=== PATIENT | male | born 1970 | race American Indian/Alaskan Native ===

== ENCOUNTER 2019-03-18 19:55 | Emergency (ER) | payer OTHER ==
[2019-03-18 20:07] VITALS: BP 128/87; TEMP 98.5; O2SAT 99
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
[2019-03-18 20:50] LABS: BASO # 0.1 K/uL (0.0-0.2); BASO % 0.7 % (0.0-2.0); EOS # 0.7 K/uL (0.0-0.7); EOS % 7.4 % (0.0-4.0); HEMOGLOBIN 14.3 g/dL (12.0-18.0); LYMPH # 3.2 K/uL (1.0-4.3); LYMPH % 32.3 % (20.0-40.0); MEAN CELL VOLUME 88.1 fl (80.0-94.0); MEAN CORPUSCULAR HEMOGLOBIN 28.2 pg (27.0-31.0); MEAN PLATELET VOLUME 10.1 fl (7.2-11.7); MONO # 0.8 K/uL (0.0-0.8); MONO % 7.9 % (0.0-10.0); NEUT # 5.1 K/uL (1.8-7.0); NEUT % 51.7 % (50.0-75.0); NRBC % 0.1 % (0.0-0.0); RBC 5.09 Mil/uL (4.40-5.90); RED CELL DISTRIBUTION WIDTH 14.9 % (11.5-14.5)
[2019-03-18 20:57] LABS: ALB/GLOB RATIO 1.3 (1.0-2.1); ALBUMIN 4.2 g/dL (3.5-5.0); ALT/SGPT 33 U/L (21-72); AST/SGOT 31 U/L (17-59); BLOOD UREA NITROGEN 17 mg/dl (9-20); CALCIUM 10.1 mg/dL (8.4-10.2); GFR NON-AFRICAN AMERICAN > 60
[2019-03-18 21:10] LABS: B-TYPE NATRIURETIC PEPTIDE 38.1 pg/ml (0-450)
[2019-03-18 21:15] LABS: PROTHROMBIN TIME 11.9 Seconds (9.8-13.1)
[2019-03-18 21:17] LABS: PARTIAL THROMBOPLASTIN TIME 37.4 Seconds (25.6-37.1)
[2019-03-18 21:26] LABS: D DIMER < 200 ng/mlDDU (0-230)
[2019-03-18] MEDS ORDERED: Iodixanol 320 MG/ML 100 ML BOTTLE IV ONE (22:25)
[2019-03-18] MEDS ORDERED: Sodium Chloride 0.9% 50 ML IV ONE (22:26)
[2019-03-19 00:06] VITALS: PULSE 85; RESP 16
--- NOTE | 2019-03-19 07:54 | RAD ---
Date of service: 03/18/2019 HISTORY: Left sided chest pain COMPARISON: No prior. TECHNIQUE: Chest PA and lateral views FINDINGS: LUNGS: No active pulmonary disease. PLEURA: No significant pleural effusion identified. No pneumothorax apparent. CARDIOVASCULAR: No aortic atherosclerotic calcification present. Normal cardiac size. No pulmonary vascular congestion. OSSEOUS STRUCTURES: No significant abnormalities. VISUALIZED UPPER ABDOMEN: Normal. OTHER FINDINGS: None. IMPRESSION: No active disease. Comments: No preliminary ER impression at this time.
--- NOTE | 2019-03-19 08:58 | CARD ---
APPROVED REPORT Date of service: 03/18/2019 EKG Measurement Heart [id number] <Conclusion> Sinus bradycardia with 1st degree AV block Otherwise normal ECG
--- NOTE | 2019-03-19 09:00 | CARD ---
APPROVED REPORT Date of service: 03/18/2019 EKG Measurement Heart [id number] <Conclusion> Normal sinus rhythm Normal ECG
--- NOTE | 2019-03-19 10:34 | CT ---
PROCEDURE: CT Angiography Chest, Abdomen and Pelvis with and without intravenous contrast HISTORY: chest pain radiating to back COMPARISON: None. TECHNIQUE: Contiguous axial images of the chest, abdomen and pelvis were obtained in the phase of aortic enhancement. A noncontrast enhanced CT of the chest was also obtained to evaluate for possible intramural thrombus. Coronal and sagittal reformats were generated. IV dose administered: 95 cc of Visipaque Radiation dose: Total exam DLP = 1148.35 mGy-cm. This CT exam was performed using one or more of the following dose reduction techniques: Automated exposure control, adjustment of the mA and/or kV according to patient size, and/or use of iterative reconstruction technique. FINDINGS: CT ANGIOGRAPHY OF THE CHEST WITH & WITHOUT CONTRAST: AORTA (CHEST AND ABDOMEN): The thoracic and abdominal aorta are unremarkable, without aneurysm, dissection or rupture. No intramural thrombus identified in the thoracic aorta on the non-contrast ct of the chest. The celiac axis, superior mesenteric artery, inferior mesenteric artery and the renal arteries are widely patent. The pelvic arteries are unremarkable. No evidence of pulmonary embolus LUNGS: Clear. No nodule, mass or consolidation. MEDIASTINUM: Unremarkable. Normal caliber aorta and pulmonary arterial trunk. No aortic dissection. Normal size heart. LYMPH NODES: Unremarkable. PLEURA: Unremarkable. No pneumothorax. No pleural fluid. BONES: Unremarkable. OTHER FINDINGS: None. CT ANGIOGRAPHY OF THE ABDOMEN AND PELVIS WITH CONTRAST: LIVER: Unremarkable. No gross lesion or ductal dilatation. GALLBLADDER AND BILE DUCTS: Small gallstones PANCREAS: Unremarkable. No gross lesion or ductal dilatation. SPLEEN: Unremarkable. ADRENALS: Unremarkable. No mass. KIDNEYS AND URETERS: Unremarkable. No hydronephrosis. No solid mass. VASCULATURE: Unremarkable. No aortic aneurysm. No aortic atherosclerotic calcification or mural plaque present. STOMACH AND BOWEL: Unremarkable. No obstruction. No gross mural thickening. APPENDIX: Normal appendix. PERITONEUM: Unremarkable. No free fluid. No free air. LYMPH NODES: Unremarkable. No enlarged lymph nodes. BLADDER: Unremarkable. REPRODUCTIVE: Unremarkable. BONES: No acute fracture. OTHER FINDINGS: The report concurs with the preliminary [facility] report IMPRESSION: No evidence of aortic dissection or aneurysm. No evidence of pulmonary embolus.
== END 2019-03-19 00:06 | disposition home or self-care (01) ==
LOC: H.ER 19:55
DX: R07.9 Chest pain, unspecified (principal); M54.10 Radiculopathy, site unspecified
CPT/HCPCS: 71046; 71275; 74175; 80053; 83735; 83880; 84100; 84443; 84484; 85025; 85378; 85610; 85730; 93005; 99284; Q9967

== ENCOUNTER 2019-03-30 19:49 | Emergency (ER) | payer OTHER ==
[2019-03-30 19:59] VITALS: O2SAT 98
--- NOTE | 2019-03-30 21:00 | ED PDOC ---
Upper Extremity Pain/Injury Time Seen by Provider: 03/30/19 19:59 Chief Complaint (Nursing): Upper Extremity Problem/Injury Chief Complaint (Provider): Upper Extremity Problem/Injury History Per: Patient History/Exam Limitations: no limitations Onset/Duration Of Symptoms: Days (today) Current Symptoms Are (Timing): Still Present Quality: "Pain" Additional Complaint(s): 48 year old male with no significant past medical history presents to the ED with left shoulder pain onset 8 am. Patient felt shoulder come out of socket and felt it go back in. Since then, he has been having pain to the shoulder under the left axilla. He is able to lift arm but has pain with movement. Patient took 800 mg of Motrin around 5 pm today. He reports his shoulder came out of socket a few years ago but never had any problems with it. PMD: none provided Past Medical History Vital Signs: Last Vital Signs Temp 98.4 F 03/30/19 19:53 Pulse 71 03/30/19 19:53 Resp 16 03/30/19 19:53 BP 156/92 H 03/30/19 19:53 Pulse Ox 98 03/30/19 19:53 Primary Care Provider: Non [facility] Provider, - Family History Family History: States: Unknown Family Hx - Home Medications Home Medications: Ambulatory Orders Medication Instructions Recorded Ibuprofen [Motrin Tab] 600 mg PO Q8 PRN #60 tab 03/18/19 Multivit-Mins/Iron/Folic/Lycop 1 each PO DAILY 03/18/19 [Centrum Men's Tablet] Ibuprofen [Motrin Tab] 800 mg PO Q8H PRN #30 tab 03/30/19 - Allergies Allergies/Adverse Reactions: Allergies Allergy/AdvReac Type Severity Reaction Status Date / Time No Known Allergies Allergy Verified 03/30/19 19:55 Physical Exam - Reviewed Nursing Documentation Reviewed: Yes Vital Signs Reviewed: Yes - Physical Exam Appears: Positive for: No Acute Distress Head Exam: Positive for: ATRAUMATIC, NORMOCEPHALIC Skin: Positive for: Normal Color, Warm, Dry Eye Exam: Positive for: Normal appearance - ECG O2 Sat by Pulse Oximetry: 98 (RA) Pulse Ox Interpretation: Normal Medical Decision Making Medical Decision Making: Time: 2022 --X-ray to confirm placement of shoulder --Patient does not want anything else for pain at this time. Time: 2056 --XR confirms shoulder is in place, XR reviewed by attending Dr. Sidhu. Patient placed on shoulder immobilizer, given Motrin for pain and orthopedic follow up. He is also advised to monitor blood pressure and advised to follow up at clinic for risk of htn. Patient states he has a blood pressure machine at home. Patient understands and is in agreement with plan. Return parameters given. Scribe Attestation: Documented by Mis Bhatt acting as a scribe for Nesha Johnson APN. Provider Scribe Attestation: All medical record entries made by the Scribe were at my direction and personally dictated by me. I have reviewed the chart and agree that the record accurately reflects my personal performance of the history, physical exam, medical decision making, and the department course for this patient. I have also personally directed, reviewed, and agree with the discharge instructions and disposition. Disposition - Clinical Impression Clinical Impression: Shoulder pain - Patient ED Disposition Is Patient to be Admitted: No Counseled Patient/Family Regarding: Diagnosis, Need For Followup, Rx Given - Disposition Referrals: Malik Montes III, MD [Staff Provider] - [facility] [Outside] Disposition: Routine/Home Disposition Time: 20:57 Condition: GOOD Prescriptions: Ibuprofen [Motrin Tab] 800 mg PO Q8H PRN #30 tab PRN Reason: Pain, Moderate (4-7) Instructions: Shoulder Pain (DC) Forms: [facility] ED School/Work Excuse Print Language: HAITIAN - POA Present On Arrival: None
[2019-03-30 21:27] VITALS: BP 140/89; PULSE 78; RESP 18; TEMP 98
--- NOTE | 2019-03-31 09:48 | RAD ---
Date of service: 03/30/2019 PROCEDURE: Radiographs of the Left Shoulder HISTORY: shoulder pain COMPARISON: No prior. TECHNIQUE: 3 views obtained. FINDINGS: BONES: No acute fracture or destructive bony lesion identified. JOINTS: No subluxation or dislocation at the glenohumeral joint with limited degenerative changes present at the acromioclavicular joint. However, there is a pattern of multiple subchondral cyst formation identified at the glenoid rim and possibly the inferior margins of the articular surface of the left humerus suggesting advanced osteoarthritis. Fibrocystic changes seen at the humeral head superiorly. SOFT TISSUES: Normal. OTHER FINDINGS: None. IMPRESSION: Advanced osteoarthritis suspected at the left glenohumeral joint. Follow-up MRI or CT can be utilized for added characterization. No subluxation or dislocation. No acute fracture identified. Limited degenerative changes acromioclavicular joint.
== END 2019-03-30 21:26 | disposition home or self-care (01) ==
LOC: H.ER 19:49
DX: M25.512 Pain in left shoulder (principal)